=== PATIENT | male | born 1970 | race Caucasian/White ===

== ENCOUNTER 2018-01-23 11:34 | Observation (INO) | payer OTHER ==
[2018-01-23 12:08] VITALS: BP 170/79; PULSE 85; RESP 16; TEMP 98.6; O2SAT 97
[2018-01-23 12:54] LABS: AUTOMATED NEUTROPHIL # 6.6 TH/MM3 (1.8-7.7); BASOPHIL % 0.5 % (0.0-2.0); EOSINOPHIL # 0.1 TH/MM3 (0-0.4); EOSINOPHIL % 0.7 % (0.0-4.0); HEMATOCRIT 47.6 % (39.0-51.0); HEMOGLOBIN 16.4 GM/DL (13.0-17.0); LYMPH % 17.4 % (9.0-44.0); LYMPHOCYTE # 1.5 TH/MM3 (1.0-4.8); MEAN CELL VOLUME 86.8 FL (80.0-100.0); MEAN CORPUSCULAR HEMOGLOBIN 29.9 PG (27.0-34.0); MEAN CORPUSCULAR HGB CONC 34.4 % (32.0-36.0); MEAN PLATELET VOLUME 8.2 FL (7.0-11.0); MONO % 4.8 % (0.0-8.0); MONOCYTE # 0.4 TH/MM3 (0-0.9); NEUT % 76.6 % (16.0-70.0); PLATELET COUNT 268 TH/MM3 (150-450); RED BLOOD COUNT 5.48 MIL/MM3 (4.50-5.90); RED CELL DISTRIBUTION WIDTH 12.7 % (11.6-17.2); WHITE BLOOD COUNT 8.6 TH/MM3 (4.0-11.0)
[2018-01-23 13:00] LABS: INTERNATIONAL NORMALIZED RATIO 1.1 RATIO; PROTHROMBIN TIME - PATIENT 10.9 SEC (9.8-11.6)
--- NOTE | 2018-01-23 13:08 | RADRPT ---
EXAM DATE/TIME: 01/23/2018 12:58 [place] COMPARISON: No previous studies available for comparison. INDICATIONS : Chest pain. Patient states he has pain under left axilla and lateral chest. Patient also complains th at when he takes in a deep breath it worsens. MEDICAL HISTORY : None. SURGICAL HISTORY : None. ENCOUNTER: Initial ACUITY: 2 days PAIN SCORE: 2/10 LOCATION: Left chest Axillary and lateral chest. FINDINGS: PA and lateral views of the chest demonstrate the lungs to be symmetrically aerated without evidence of mass, infiltrate or effusion. The cardiomediastinal contours are unremarkable. Osseous structure s are intact. CONCLUSION: Normal examination for a patient of this age. Toni Hawkins MD on January 23, 2018 at 13:06 Board Certified Radiologist. This report was verified electronically.
[2018-01-23 13:09] LABS: BICARBONATE 28.8 MEQ/L (21.0-32.0); BLOOD UREA NITROGEN 17 MG/DL (7-18); CALCIUM 8.8 MG/DL (8.5-10.1); CHLORIDE 105 MEQ/L (98-107); CREATININE 1.04 MG/DL (0.60-1.30); GLOMERULAR FILTRATION RATE 76 ML/MIN (>89); GLUCOSE,RANDOM 127 MG/DL (74-106); SODIUM (NA) 141 MEQ/L (136-145)
[2018-01-23 13:13] LABS: TROPONIN I LESS THAN 0.02 NG/ML (0.02-0.05)
[2018-01-23 17:20] VITALS: O2SAT 98
--- NOTE | 2018-01-23 17:27 | PD ---
HPI Chief Complaint: Chest Pain Time Seen by Provider: 17:06 Travel History International Travel<30 days: No Contact w/Intl Traveler<30days: No Traveled to known affect area: No History of Present Illness HPI 47-year-old male presents to the ED for evaluation approximately 18 hour history of left-sided chest pressure, waxing and waning, 3/10 maximally, worsened by deep breathing. The discomfort is accompanied by shortness of breath. Patient denies associated diaphoresis, palpitations, nausea, vomiting. Symptoms onset while at rest. No alleviating or exacerbating factors reported. Patient is a lifelong nonsmoker. He endorses familial history of "cardiac issue" in his brother and his mid 50s. He denies chronic illness. He states that at his last checkup there was some concern for YADIRA, but the patient has never had a sleep study. No treatment attempt at home. Pain currently rated 1/10. PFSH Past Medical History Medical History: Denies Significant Hx Past Surgical History Surgical History: No Previous Surgery Family History Family Myocardial Infarction: Yes Social History Alcohol Use: No Tobacco Use: No Substance Use: No Allergies-Medications (Allergen,Severity, Reaction): Coded Allergies: No Known Allergies (Unverified , 01/23/18) Reported Meds & Prescriptions Reported Meds & Active Scripts Active No Active Prescriptions or Reported Medications Review of Systems Except as stated in HPI: all other systems reviewed are Neg Physical Exam Narrative GENERAL: Well-nourished, well-developed white male in no acute distress. SKIN: Focused skin assessment warm/dry. HEAD: Normocephalic. EYES: No scleral icterus. No injection or drainage. NECK: Supple, trachea midline. No JVD or lymphadenopathy. CARDIOVASCULAR: Regular rate and rhythm without murmurs, gallops, or rubs. CHEST: Nontender throughout without deformity or crepitus. No retractions. RESPIRATORY: Breath sounds clear and equal bilaterally. No accessory muscle use. GASTROINTESTINAL: Abdomen soft, non-tender, nondistended. Active bowel sounds. MUSCULOSKELETAL: No cyanosis, or edema. Moves extremities spontaneously. BACK: Nontender without obvious deformity. No CVA tenderness. Data Data Last Documented VS Vital Signs Date Time Temp Pulse Resp B/P (MAP) Pulse Ox O2 Delivery O2 Flow Rate FiO2 01/23/18 17:20 98 Room Air 01/23/18 17:15 75 01/23/18 12:08 98.6 16 170/79 (109) Orders Orders Electrocardiogram (01/23/18 12:09) Complete Blood Count With Diff (01/23/18 12:09) Basic Metabolic Panel (Bmp) (01/23/18 12:09) Ckmb (Isoenzyme) Profile (01/23/18 12:09) Troponin I (01/23/18 12:09) Iv Access Insert/Monitor (01/23/18 12:09) Ecg Monitoring (01/23/18 12:09) Oxygen Administration (01/23/18 12:09) Oximetry (01/23/18 12:09) Act Partial Throm Time (Ptt) (01/23/18 12:09) Prothrombin Time / Inr (Pt) (01/23/18 12:09) Chest, Pa & Lat (01/23/18 ) CKMB (01/23/18 12:20) CKMB% (01/23/18 12:20) Aspirin (Aspirin) (01/23/18 17:30) Admit Order (Ed Use Only) (01/23/18 17:45) Place In Observation (01/23/18 17:45) Activity Bed Rest With Brp (01/23/18 17:45) Vital Signs (Adult) Q4H (01/23/18 17:45) Cardiac Rhythm .As Directed (01/23/18 17:45) Notify Dr: Other .PRN (01/23/18 17:45) Notify DrTyrell Parameters (01/23/18 17:45) Diet Heart Healthy (01/23/18 Dinner) Ckmb (Isoenzyme) Profile (01/23/18 17:45) Ckmb (Isoenzyme) Profile (01/23/18 20:45) Troponin I (01/23/18 17:45) Troponin I (01/23/18 20:45) Electrocardiogram (01/23/18 17:45) Electrocardiogram (01/23/18 20:45) ^ Obtain (01/23/18 17:45) Sodium Chloride 0.9% Flush (Ns Flush) (01/23/18 17:45) Sodium Chloride 0.9% Flush (Ns Flush) (01/23/18 21:00) Digester Operator / Telemetry MARIIA.Q8H (01/23/18 17:45) Labs Laboratory Tests Test 01/23/18 12:20 White Blood Count 8.6 TH/MM3 Red Blood Count 5.48 MIL/MM3 Hemoglobin 16.4 GM/DL Hematocrit 47.6 % Mean Corpuscular Volume 86.8 FL Mean Corpuscular Hemoglobin 29.9 PG Mean Corpuscular Hemoglobin Concent 34.4 % Red Cell Distribution Width 12.7 % Platelet Count 268 TH/MM3 Mean Platelet Volume 8.2 FL Neutrophils (%) (Auto) 76.6 % Lymphocytes (%) (Auto) 17.4 % Monocytes (%) (Auto) 4.8 % Eosinophils (%) (Auto) 0.7 % Basophils (%) (Auto) 0.5 % Neutrophils # (Auto) 6.6 TH/MM3 Lymphocytes # (Auto) 1.5 TH/MM3 Monocytes # (Auto) 0.4 TH/MM3 Eosinophils # (Auto) 0.1 TH/MM3 Basophils # (Auto) 0.0 TH/MM3 CBC Comment DIFF FINAL Differential Comment Prothrombin Time 10.9 SEC Prothromb Time International Ratio 1.1 RATIO Activated Partial Thromboplast Time 27.6 SEC Blood Urea Nitrogen 17 MG/DL Creatinine 1.04 MG/DL Random Glucose 127 MG/DL Calcium Level 8.8 MG/DL Sodium Level 141 MEQ/L Potassium Level 3.5 MEQ/L Chloride Level 105 MEQ/L Carbon Dioxide Level 28.8 MEQ/L Anion Gap 7 MEQ/L Estimat Glomerular Filtration Rate 76 ML/MIN Total Creatine Kinase 189 U/L Creatine Kinase MB 1.2 NG/ML Troponin I LESS THAN 0.02 NG/ML MDM Medical Decision Making Medical Screen Exam Complete: Yes Emergency Medical Condition: Yes Differential Diagnosis Chest pain versus muscle skeletal pain versus angina versus ACS versus other Narrative Course 47-year-old male presents to the ED for evaluation approximately 18 hour history of left-sided chest pressure, waxing and waning, 3/10 maximally, worsened by deep breathing, accompanied by shortness of breath. ymptoms onset while at rest. He endorses familial history of "cardiac issue" in his brother in his mid 50s. Pain 1/10 on presentation. On exam this is a pleasant white male in no acute distress. Chest CTA B. No appreciable and/are/GP. No tenderness over the precordium. Exam otherwise unremarkable. Afebrile, pulse 85, BP 170/79, pulse ox 97% on room air on presentation. EKG: Rate 80, sinus rhythm. OH interval 136, QRS 121, QTC 426 ms. Normal axis. Q wave in lead 2. No acute ST changes. Reviewed by Dr. Guerra. CXR: Normal per radiology read. Cardec enzymes negative 1. No concerning abnormalities CBC, coags, CMP. I discussed the results of the workup with the patient. Given his risk factors I recommended admission to the chest pain center to rule out ACS. Patient agreeable with this plan. Please see chest pain center notes for disposition. Scripts No Active Prescriptions or Reported Meds Mariia Noble Jan 23, 2018 17:27
[2018-01-23] MEDS ORDERED: ASPIRIN 325 MG TAB PO ONE (17:30)
[2018-01-23] MEDS ORDERED: SODIUM CHLORIDE 0.9% FLUSH 10 ML FLUSH IV FLUSH PRN (17:45)
--- NOTE | 2018-01-23 18:05 | PD ---
Physical Exam Date Seen by Provider: Jan 23, 2018 Time Seen by Provider: 17:00 Narrative I, Dr. Steve, have reviewed the advance practice practitioner's documentation and am in agreement, met with the patient face to face, made the diagnosis, and the medical decision making was done by me. *My assessment and Findings: Patient seen and evaluated with PA, please see PA notes for further details. Coming in with chest discomfort, no focal findings were identified on cardiac or pulmonary exam. Pulses are present and equal bilaterally. Vital signs are stable in the ER. EKG did not show any signs of acute ST changes. Laboratory Tests Test 01/23/18 12:20 Neutrophils (%) (Auto) 76.6 % (16.0-70.0) Random Glucose 127 MG/DL (74-106) Estimat Glomerular Filtration Rate 76 ML/MIN (>89) Troponin I LESS THAN 0.02 NG/ML Last 24 hours Impressions Chest X-Ray 01/23/18 0000 Signed Impressions: Service Date/Time: Tuesday, January 23, 2018 12:58 - CONCLUSION: Normal examination for a patient of this age. Toni Hawkins MD Chest x-ray did not show any signs of acute pulmonary processes and cardiac enzymes are negative. At this point, plan would be to admit the patient to chest pain center for further evaluation. Data Data Last Documented VS Vital Signs Date Time Temp Pulse Resp B/P (MAP) Pulse Ox O2 Delivery O2 Flow Rate FiO2 01/23/18 17:20 98 Room Air 01/23/18 17:15 75 01/23/18 12:08 98.6 16 170/79 (109) Orders Orders Electrocardiogram (01/23/18 12:09) Complete Blood Count With Diff (01/23/18 12:09) Basic Metabolic Panel (Bmp) (01/23/18 12:09) Ckmb (Isoenzyme) Profile (01/23/18 12:09) Troponin I (01/23/18 12:09) Iv Access Insert/Monitor (01/23/18 12:09) Ecg Monitoring (01/23/18 12:09) Oxygen Administration (01/23/18 12:09) Oximetry (01/23/18 12:09) Act Partial Throm Time (Ptt) (01/23/18 12:09) Prothrombin Time / Inr (Pt) (01/23/18 12:09) Chest, Pa & Lat (01/23/18 ) CKMB (01/23/18 12:20) CKMB% (01/23/18 12:20) Aspirin (Aspirin) (01/23/18 17:30) Admit Order (Ed Use Only) (01/23/18 17:45) Place In Observation (01/23/18 17:45) Activity Bed Rest With Brp (01/23/18 17:45) Vital Signs (Adult) Q4H (01/23/18 17:45) Cardiac Rhythm .As Directed (01/23/18 17:45) Notify Dr: Other .PRN (01/23/18 17:45) Notify Dr. Parameters (01/23/18 17:45) Diet Heart Healthy (01/23/18 Dinner) Ckmb (Isoenzyme) Profile (01/23/18 17:45) Ckmb (Isoenzyme) Profile (01/23/18 20:45) Troponin I (01/23/18 17:45) Troponin I (01/23/18 20:45) Electrocardiogram (01/23/18 17:45) Electrocardiogram (01/23/18 20:45) ^ Obtain (01/23/18 17:45) Sodium Chloride 0.9% Flush (Ns Flush) (01/23/18 17:45) Sodium Chloride 0.9% Flush (Ns Flush) (01/23/18 21:00) Electric Razor Assembler / Telemetry MARIIA.Q8H (01/23/18 17:45) Labs Laboratory Tests Test 01/23/18 12:20 White Blood Count 8.6 TH/MM3 Red Blood Count 5.48 MIL/MM3 Hemoglobin 16.4 GM/DL Hematocrit 47.6 % Mean Corpuscular Volume 86.8 FL Mean Corpuscular Hemoglobin 29.9 PG Mean Corpuscular Hemoglobin Concent 34.4 % Red Cell Distribution Width 12.7 % Platelet Count 268 TH/MM3 Mean Platelet Volume 8.2 FL Neutrophils (%) (Auto) 76.6 % Lymphocytes (%) (Auto) 17.4 % Monocytes (%) (Auto) 4.8 % Eosinophils (%) (Auto) 0.7 % Basophils (%) (Auto) 0.5 % Neutrophils # (Auto) 6.6 TH/MM3 Lymphocytes # (Auto) 1.5 TH/MM3 Monocytes # (Auto) 0.4 TH/MM3 Eosinophils # (Auto) 0.1 TH/MM3 Basophils # (Auto) 0.0 TH/MM3 CBC Comment DIFF FINAL Differential Comment Prothrombin Time 10.9 SEC Prothromb Time International Ratio 1.1 RATIO Activated Partial Thromboplast Time 27.6 SEC Blood Urea Nitrogen 17 MG/DL Creatinine 1.04 MG/DL Random Glucose 127 MG/DL Calcium Level 8.8 MG/DL Sodium Level 141 MEQ/L Potassium Level 3.5 MEQ/L Chloride Level 105 MEQ/L Carbon Dioxide Level 28.8 MEQ/L Anion Gap 7 MEQ/L Estimat Glomerular Filtration Rate 76 ML/MIN Total Creatine Kinase 189 U/L Creatine Kinase MB 1.2 NG/ML Troponin I LESS THAN 0.02 NG/ML [facility] Medical Record Reviewed: Yes Supervised Visit with RADAMES: Yes Diagnosis Primary Impression: Chest pain Admitting Information Admitting Physician Requests: Admit Scripts No Active Prescriptions or Reported Meds Yeni Steve MD Jan 23, 2018 18:05
[2018-01-23] MEDS ORDERED: ONDANSETRON HCL 4 MG/2 ML VIAL IV PUSH PRN (18:30)
[2018-01-23] MEDS ORDERED: ACETAMINOPHEN 500 MG CPLT PO PRN (18:30)
[2018-01-23 20:07] LABS: TROPONIN I LESS THAN 0.02 NG/ML (0.02-0.05)
[2018-01-23] MEDS ORDERED: SODIUM CHLORIDE 0.9% FLUSH 10 ML FLUSH IV FLUSH SCH (21:00)
--- NOTE | 2018-01-24 13:21 | EKG ---
Date Performed: 01/23/2018 Time Performed: 12:13:35 PTAGE: 47 years EKG: Sinus rhythm NONDIAGNOSTIC Q WAVES IN THE INFERIOR LEADS NO PREVIOUS TRACING DOCTOR: Robinson Shannon Interpretating Date/Time 01/24/2018 13:20:09
== END 2018-01-24 00:36 | disposition left against medical advice (07) ==
LOC: NEPE 11:34 → NEDA 17:47 → NEPGCP 19:01
PROVIDERS: ADMIT Internal Medicine Cardiovascular Disease; ATTEND Internal Medicine Cardiovascular Disease
DX: R07.89 Other chest pain (principal); R06.02 Shortness of breath
CPT/HCPCS: 71046; 80048; 82550; 82552; 84484; 85025; 85610; 85730; 93005; 99285; G0378